=== PATIENT | female | born 1985 | race Caucasian/White ===

== ENCOUNTER 2019-05-31 21:04 | Emergency (ER) | payer SELFPAY ==
[~2019-05-31] VITALS: Ht 160 cm; Wt 91.6 kg
[2019-05-31 21:11] VITALS: Ht 160 cm; Wt 91.6 kg
[2019-05-31 23:25] LABS: BASOPHIL % 0.8 % (0-2); PLATELET COUNT 352 x10^3mcL (130-400); RED CELL DISTRIBUTION WIDTH 17.4 % (11.5-14.5)
[2019-05-31 23:41] LABS: CALCIUM 8.7 mg/dL (8.5-10.1); CARBON DIOXIDE 29.6 mmol/L (21-32); CHLORIDE SERUM 106 mmol/L (98-107); CREATININE SERUM 0.7 mg/dL (0.6-1.0); GFR1 > 60 mL/min; GLUCOSE SERUM 93 mg/dL (74-106); POTASSIUM SERUM 3.5 mmol/L (3.5-5.1); SODIUM SERUM 142 mmol/L (136-145)
[2019-05-31 23:46] LABS: ALBUMIN 3.5 g/dL (3.4-5.0); ALKALINE PHOSPHATASE 80 U/L (46-116); ALT/SGPT 66 U/L (14-59); AST/SGOT 53 U/L (15-37); BILIRUBIN TOTAL 0.2 mg/dL (0.20-1.00); LIPASE 184 IU/L (73-393); TOTAL PROTEIN, SERUM 7.5 g/dL (6.4-8.2)
[2019-05-31 23:59] LABS: microscopic required? NO
[2019-06-01 00:10] LABS: UA SPECIFIC GRAVITY >=1.030 (1.005-1.035); urine erythrocyte NEGATIVE (NEGATIVE)
[2019-06-01 01:09] VITALS: BP 99/54
== END 2019-06-01 01:09 | disposition home or self-care (01) ==
LOC: ED 21:04
PROVIDERS: Emergency Medicine
DX: K80.20 Calculus of gallbladder without cholecystitis without obstruction (principal); F17.210 Nicotine dependence, cigarettes, uncomplicated
CPT/HCPCS: 36415; J1885; Q0162

== ENCOUNTER 2020-05-09 10:29 | Emergency (ER) | payer MEDICAID ==
[~2020-05-09] VITALS: Ht 162.6 cm; Wt 86.2 kg
[2020-05-09 10:33] VITALS: Ht 162.6 cm; Wt 86.2 kg
[2020-05-09 13:08] VITALS: BP 110/68
== END 2020-05-09 13:08 | disposition home or self-care (01) ==
LOC: ED 10:29
DX: G44.209 Tension-type headache, unspecified, not intractable (principal)
CPT/HCPCS: J1885; J2765; J7030

== ENCOUNTER 2020-05-10 11:08 | Emergency (ER) | payer MEDICAID, SELFPAY ==
[~2020-05-10] VITALS: Ht 160 cm; Wt 101.6 kg
[2020-05-10 11:08] VITALS: BP 116/77; Ht 160 cm; Wt 101.6 kg
== END 2020-05-10 11:55 | disposition home or self-care (01) ==
LOC: ED 11:08
DX: J06.9 Acute upper respiratory infection, unspecified (principal); Z20.828 Contact with and (suspected) exposure to other viral communicable diseases
CPT/HCPCS: U0003-CS